=== PATIENT | male | born 1995 | race American Indian/Alaskan Native ===

== ENCOUNTER 2017-07-21 17:54 | Emergency (ER) | payer SELFPAY ==
[2017-07-21 18:26] VITALS: BP 110/70
[2017-07-21] MEDS ORDERED: BOOSTRIX IM ONE (19:45)
--- NOTE | 2017-07-21 19:59 | Emergency Department Report ---
ED Upper Extremity Inj HPI - General Chief Complaint: Extremity Injury, Upper Stated Complaint: FINGER INJURY Time Seen by Provider: 07/21/17 19:41 Source: patient, EMS Mode of arrival: Ambulatory Limitations: No Limitations - History of Present Illness Initial Comments: 21-year-old -[place] male comes in complaint of right index finger laceration while at work on a conveyor belt. Patient reports that he is not up- to-date on his tetanus. Patient reports that he applied a dressing while at work and bleeding is controlled. Patient has no past medical history currently takes no medications and has no known drug allergies. Complaint: Injury to:: right Other Extremity Injury: Fingers: Right (index) Other Injuries: none Place: work Severity scale (0 -10): 7 Context: laceration Associated Symptoms: denies other symptoms Treatments Prior to Arrival: bandage - Related Data Home Medications Medication Instructions Recorded Confirmed Last Taken No Known Home Medications [No 08/22/14 08/22/14 Unknown Reported Home Medications] Allergies Allergy/AdvReac Type Severity Reaction Status Date / Time No Known Allergies Allergy Verified 08/23/14 01:24 ED Review of Systems ROS: Stated complaint: FINGER INJURY Other details as noted in HPI Constitutional: denies: chills, fever Eyes: denies: eye pain, eye discharge, vision change ENT: denies: ear pain, throat pain Respiratory: denies: cough, shortness of breath, wheezing Cardiovascular: denies: chest pain, palpitations Endocrine: no symptoms reported Gastrointestinal: denies: abdominal pain, nausea, diarrhea Genitourinary: denies: urgency, dysuria Musculoskeletal: denies: back pain, joint swelling, arthralgia Skin: other (right index finger ). denies: rash, lesions Neurological: denies: headache, weakness, paresthesias Psychiatric: denies: anxiety, depression Hematological/Lymphatic: denies: easy bleeding, easy bruising ED Past Medical Hx - Past Medical History Previous Medical History?: No - Surgical History Past Surgical History?: No - Social History Smoking Status: Current Every Day Smoker Substance Use Type: Alcohol - Medications Home Medications: Home Medications Medication Instructions Recorded Confirmed Last Taken Type No Known Home Medications [No 08/22/14 08/22/14 Unknown History Reported Home Medications] ED Physical Exam - General Limitations: No Limitations General appearance: alert, in no apparent distress - Head Head exam: Present: atraumatic, normocephalic - Cardiovascular Cardiovascular Exam: Present: regular rate, normal rhythm. Absent: systolic murmur, diastolic murmur, rubs, gallop - Neurological Exam Neurological exam: Present: alert, oriented X3 - Psychiatric Psychiatric exam: Present: normal affect, normal mood - Skin Skin exam: Present: other (right index finger superficial laceration to the PIP. Full range of motion no active bleeding no swelling mild tenderness to palpate) ED Course Vital Signs 07/21/17 18:22 Temperature 97.7 F Pulse Rate 56 L Respiratory 16 Rate Blood Pressure 110/70 O2 Sat by Pulse 99 Oximetry - Laceration /Wound Repair Right Finger Wound Length (cm): 1 Wound's Depth, Shape: superficial Wound Explored: clean Irrigated w/ Saline (ccs): 250 Betadine Prep?: Yes Wound Repaired With: Steri-strips, Dermabond Progress: Patient tolerated procedure well. ED Medical Decision Making - Medical Decision Making Patient's been evaluated by this provider fast track. I discussed the patient that he will need a tetanus booster. Discussed the patient that we will clean the wound and appears to be superficial so we can probably treat with surgical glue and Steri-Strips. Discussed the patient that he needs to follow up with his primary care provider if he notices any infection. Discussed the patient to keep the bandage on it and/or use gloves when working. Patient verbalized understanding. Critical care attestation.: If time is entered above; I have spent that time in minutes in the direct care of this critically ill patient, excluding procedure time. ED Disposition Clinical Impression: Laceration of finger of right hand Qualifiers: Encounter type: initial encounter Finger: index finger Damage to nail status: without damage Foreign body presence: without foreign body Qualified Code(s): S61.210A - Laceration without foreign body of right index finger without damage to nail, initial encounter Disposition: - TO HOME OR SELFCARE Is pt being admited?: No Does the pt Need Aspirin: No Condition: Stable Instructions: Laceration (ED), Skin Adhesive Care (ED) Additional Instructions: Please keep wound clean and dry. Follow up if there is any signs of infection such as purulent discharge swelling and redness. Referrals: DARINEL LEVY MD [Primary Care Provider] - 3-[address] [facility] [Provider Group] - 3-5 Days Forms: Work/School Release Form(ED)
[2017-07-21] MEDS ORDERED: MOTRIN PO ONE (20:04)
== END 2017-07-21 20:34 | disposition home or self-care (01) ==
LOC: ED 17:54
DX: S61.210A Laceration without foreign body of right index finger without damage to nail, initial encounter (principal); F17.200 Nicotine dependence, unspecified, uncomplicated; W45.8XXA Other foreign body or object entering through skin, initial encounter; Y93.89 Activity, other specified; Y92.89 Other specified places as the place of occurrence of the external cause; Y99.8 Other external cause status
CPT/HCPCS: 90471; 90715; 99283